=== PATIENT | female | born 1965 | race African-American/Black ===

== ENCOUNTER 2016-08-11 10:50 | Emergency (ER) | payer MEDICAID ==
[~2016-08-11] VITALS: Ht 167.6 cm; Wt 81.0 kg
[~2016-08-11 10:50] MED LIST: CLON0.2T PO; HYDR-523 PO; HYDR2TAB4 PO; PHEN100C4 PO
[2016-08-11] MEDS ORDERED: IBUPROFEN 600MG TABLET PO ONE (11:45)
[2016-08-11 13:23] VITALS: BP 121/77
== END 2016-08-11 13:26 | disposition home or self-care (01) ==
LOC: ER 13:05
DX: M25.562 Pain in left knee (principal); I10 Essential (primary) hypertension; F17.200 Nicotine dependence, unspecified, uncomplicated; Z88.8 Allergy status to other drugs, medicaments and biological substances
CPT/HCPCS: 73562; 99284; L1830

== ENCOUNTER 2016-11-08 09:28 | Emergency (ER) | payer MEDICAID ==
[~2016-11-08] VITALS: Ht 167.6 cm; Wt 70.0 kg
[2016-11-08 12:10] VITALS: BP 126/7
[2016-11-08] MEDS ORDERED: IBUPROFEN 400MG TABLET PO ONE (13:45)
== END 2016-11-08 14:15 | disposition left against medical advice (07) ==
LOC: ER 11:19
DX: R19.00 Intra-abdominal and pelvic swelling, mass and lump, unspecified site (principal); I10 Essential (primary) hypertension; Z88.8 Allergy status to other drugs, medicaments and biological substances
CPT/HCPCS: 99281